=== PATIENT | male | born 1970 | race Hispanic/Latino ===

== ENCOUNTER 2018-01-17 19:08 | Emergency (ER) | payer BC, OTHER ==
--- NOTE | 2018-01-17 21:01 | ER ---
Nurse's Notes [facility] Name: Jeferson Nielson Age: 48 yrs Sex: Male : 1970 Arrival Date: 01/17/2018 Time: 19:11 Bed 30 Private MD: Diagnosis: Acute sinusitis Presentation: 01/17 19:29 Presenting complaint: Patient states: that he is having a headache, sore throat, cough, fc congestion and ear pressure. Started 2 weeks ago. Transition of care: patient was not received from another setting of care. Onset of symptoms was December 29, 2017. Care prior to arrival: None. 19:29 Method Of Arrival: Ambulatory 19:29 Acuity: RAMON 4 fc Triage Assessment: 19:33 General: Appears comfortable, Behavior is calm, cooperative, appropriate for age. Pain: fc Complains of pain in throat, sinus Pain currently is 6 out of 10 on a pain scale. Quality of pain is described as aching, pressure, Pain began 2 weeks ago Is continuous. EENT: Nares with drainage noted Throat is reddened Reports difficulty swallowing nasal congestion nasal discharge. Neuro: Level of Consciousness is awake, alert, obeys commands, Oriented to person, place, time, situation. Cardiovascular: No deficits noted. Respiratory: Reports cough that is Breath sounds are clear bilaterally. GI: No deficits noted. : No deficits noted. Derm: Skin is pink, warm \T\ dry. Musculoskeletal: Circulation, motion, and sensation intact. Capillary refill < 3 seconds, Range of motion: intact in all extremities. Historical: - Allergies: 19:32 No Known Allergies; fc - Home Meds: 19:32 None [Active]; fc - PMHx: 19:32 None; fc - PSHx: 19:32 None; fc - Immunization history:: Last tetanus immunization: unknown. - Social history:: Smoking status: Patient/guardian denies using tobacco. Screenin:30 Abuse screen: Denies threats or abuse. rk2 20:30 Nutritional screening: No deficits noted. Tuberculosis screening: No symptoms or risk rk2 factors identified. Fall Risk None identified. Assessment: 21:23 General: Appears in no apparent distress. well groomed, well developed, well nourished. rk2 Neuro: Level of Consciousness is alert, obeys commands, Oriented to person, place, time, situation. Cardiovascular: Rhythm is regular. Cardiovascular: Pulses. Cardiovascular: Capillary refill < 3 seconds. Respiratory: Airway is patent Respiratory effort is even, unlabored, Respiratory pattern is regular, symmetrical. Respiratory: Breath sounds are clear bilaterally. Derm: Skin is pink, warm \T\ dry. Vital Signs: 19:32 BP 154 / 83; Pulse 91; Resp 18; Temp 99.2(O); Pulse Ox 99% on R/A; Weight 77.11 kg (R); Height 5 ft. 7 in. (170.18 cm) (R); Pain 6/10; 21:15 BP 141 / 88; Pulse 88; Resp 16; Pulse Ox 99% ; rk2 19:32 Body Mass Index 26.63 (77.11 kg, 170.18 cm) ED Course: 19:11 Patient arrived in ED. ds1 19:30 Triage completed. fc 19:32 Arm band placed on left wrist. Patient placed in waiting room, Patient notified of wait fc time. 19:32 Strep swab sent to lab. fc 20:15 Unruly Ferguson NP is PHCP. pm1 20:15 Sky Downing MD is Attending Physician. pm1 20:30 Patient has correct armband on for positive identification. Bed in low position. Call rk2 light in reach. 20:44 Laina Fountain RN is Primary Nurse. rk2 21:29 No provider procedures requiring assistance completed. Patient did not have IV access rk2 during this emergency room visit. Administered Medications: No medications were administered Outcome: 21:01 Discharge ordered by MD. pm1 21:29 Discharged to home ambulatory. rk2 21:29 Condition: good 21:29 Discharge instructions given to patient. 21:30 Patient left the ED. rk2 Signatures: Rosa Elena Lorenzo RN RN Maddie Rosen ds1 Unruly Ferguson NP RECREATION PROGRAM COORDINATOR pm1 Laina Fountain RN RN rk2
--- NOTE | 2018-01-17 21:02 | EDPHYS ---
Physician Documentation [facility] Name: Jeferson Nielson Age: 48 yrs Sex: Male : 1970 Arrival Date: 01/17/2018 Time: 19:11 Bed 30 Private MD: ED Physician Sky Downing HPI: 01/18 03:13 This 48 yrs old Male presents to ER via Ambulatory with complaints of pm1 Congestion, Sinus Pain, Sore Throat. 03:13 The patient or guardian reports cough, with productive sputum, sinus congestion. Onset: pm1 The symptoms/episode began/occurred 2 week(s) ago. Severity of symptoms: in the emergency department the symptoms are actually worse. Modifying factors: The symptoms are alleviated by nothing, the symptoms are aggravated by nothing. Associated signs and symptoms: Pertinent negatives: chest pain, fever, shortness of breath. The patient has not experienced similar symptoms in the past. The patient has not recently seen a physician. Historical: - Allergies: 01/17 19:32 No Known Allergies; fc - Home Meds: 19:32 None [Active]; fc - PMHx: 19:32 None; fc - PSHx: 19:32 None; fc - Immunization history:: Last tetanus immunization: unknown. - Social history:: Smoking status: Patient/guardian denies using tobacco. ROS: 01/18 03:13 Constitutional: Negative for fever, chills, and weight loss, Eyes: Negative for injury, pm1 pain, redness, and discharge. Neck: Negative for injury, pain, and swelling, Cardiovascular: Negative for chest pain, palpitations, and edema. Abdomen/GI: Negative for abdominal pain, nausea, vomiting, diarrhea, and constipation, Back: Negative for injury and pain, MS/Extremity: Negative for injury and deformity, Skin: Negative for injury, rash, and discoloration. ENT: Positive for sinus congestion, sinus pain, sore throat. Respiratory: Positive for cough, Negative for shortness of breath, wheezing. Neuro: Positive for headache, Negative for dizziness, weakness. Exam: 03:13 Constitutional: This is a well developed, well nourished patient who is awake, alert, pm1 and in no acute distress. 03:13 Eyes: Pupils equal round and reactive to light, extra-ocular motions intact. Lids and lashes normal. Conjunctiva and sclera are non-icteric and not injected. Cornea within normal limits. Periorbital areas with no swelling, redness, or edema. ENT: Nares patent. No nasal discharge, no septal abnormalities noted. Tympanic membranes are normal and external auditory canals are clear. Oropharynx with no redness, swelling, or masses, exudates, or evidence of obstruction, uvula midline. Mucous membranes moist. Neck: Trachea midline, no thyromegaly or masses palpated, and no cervical lymphadenopathy. Supple, full range of motion without nuchal rigidity, or vertebral point tenderness. No Meningismus. Chest/axilla: Normal chest wall appearance and motion. Nontender with no deformity. No lesions are appreciated. Cardiovascular: Regular rate and rhythm with a normal S1 and S2. No gallops, murmurs, or rubs. Normal PMI, no JVD. No pulse deficits. Respiratory: Lungs have equal breath sounds bilaterally, clear to auscultation and percussion. No rales, rhonchi or wheezes noted. No increased work of breathing, no retractions or nasal flaring. Abdomen/GI: Soft, non-tender, with normal bowel sounds. No distension or tympany. No guarding or rebound. No evidence of tenderness throughout. Back: No spinal tenderness. No costovertebral tenderness. Full range of motion. Skin: Warm, dry with normal turgor. Normal color with no rashes, no lesions, and no evidence of cellulitis. MS/ Extremity: Pulses equal, no cyanosis. Neurovascular intact. Full, normal range of motion. 03:13 Head/face: Sinus tenderness, that is moderate, is located over the right frontal sinus and left frontal sinus. 03:13 Neuro: Orientation: is normal, Mentation: is normal, Motor: is normal, moves all fours, Gait: is steady, at a normal pace, without difficulty. Vital Signs: 01/17 19:32 BP 154 / 83; Pulse 91; Resp 18; Temp 99.2(O); Pulse Ox 99% on R/A; Weight 77.11 kg (R); fc Height 5 ft. 7 in. (170.18 cm) (R); Pain 6/10; 21:15 BP 141 / 88; Pulse 88; Resp 16; Pulse Ox 99% ; rk2 19:32 Body Mass Index 26.63 (77.11 kg, 170.18 cm) MDM: 20:17 Patient medically screened. pm1 21:00 Data reviewed: vital signs. Data interpreted: Pulse oximetry: on room air is 99 %. pm1 Interpretation: normal. Counseling: I had a detailed discussion with the patient and/or guardian regarding: the historical points, exam findings, and any diagnostic results supporting the discharge/admit diagnosis, the need for outpatient follow up, to return to the emergency department if symptoms worsen or persist or if there are any questions or concerns that arise at home. 01/17 19:33 Order name: Strep; Complete Time: 20:57 01/17 20:03 Order name: Throat Culture EDMS Administered Medications: No medications were administered Disposition: 01/18 00:22 Co-signature as Attending Physician, Sky Downing MD. [email or web address] Disposition: 01/17/18 21:01 Discharged to Home. Impression: Acute sinusitis. - Condition is Stable. - Discharge Instructions: Sinusitis, Adult. - Prescriptions for Augmentin 875- 125 mg Oral Tablet - take 1 tablet by ORAL route every 12 hours for 10 days; 20 tablet. - Medication Reconciliation Form, Thank You Letter, Antibiotic Education, Work release form form. - Follow up: Emergency Department; When: As needed; Reason: Worsening of condition. Follow up: Private Physician; When: 2 - 3 days; Reason: Recheck today's complaints, Continuance of care, Re-evaluation by your physician. - Problem is new. - Symptoms have improved. Signatures: Dispatcher [employer] EDMS Sky Downing MD MD pkl Chretien, Felicia RN RN Unruly Ferguson NP FERMENTATION SCIENTIST pm1 Laina Fountain RN RN rk2
== END 2018-01-17 21:30 | disposition home or self-care (01) ==
LOC: ER 19:08
DX: J01.90 Acute sinusitis, unspecified (principal)
CPT/HCPCS: 87070; 87081; 99283